=== PATIENT | male | born 1945 | race Caucasian/White ===

== ENCOUNTER 2020-10-31 15:07 | Emergency (ER) | payer MEDICARE, SELFPAY ==
[2020-10-31 15:20] VITALS: BP 127/63; PULSE 71; RESP 18; TEMP 37.4; O2SAT 99
--- NOTE | 2020-10-31 16:03 | ED.URI ---
HPI - URI/Sore Throat General Chief Complaint: Upper Respiratory Infection Stated Complaint: cough/congestion Time Seen by Provider: 10/31/20 15:46 Source: patient and RN notes reviewed Mode of arrival: ambulatory Limitations: no limitations History of Present Illness HPI Narrative: Patient presents today with a 3-day history of cough, congestion, and severe fatigue. Denies fever. He has been taking Delsym for his cough. He has had his vaccine for COVID-19. States his is also home ill. MD elicited complaint: cough and nasal congestion Related Data Home Medications Medication Instructions Recorded Confirmed clopidogrel 75 mg PO DAILY 10/31/20 10/31/20 empagliflozin-metformin [Synjardy] 1 tablet PO BID 10/31/20 10/31/20 ezetimibe 10 mg PO DAILY 10/31/20 10/31/20 isosorbide mononitrate 30 mg PO DAILY 10/31/20 10/31/20 liraglutide [Victoza 3-Jf] 1.8 mg SUBCUT DAILY 10/31/20 10/31/20 losartan 25 mg PO DAILY 10/31/20 10/31/20 metoprolol succinate 25 mg PO DAILY 10/31/20 10/31/20 omega 1-wwp-ijm-fish oil [Fish Oil] 1,200 cap PO DAILY 10/31/20 10/31/20 simvastatin 20 mg PO DAILY 10/31/20 10/31/20 Allergies Allergy/AdvReac Type Severity Reaction Status Date / Time codeine AdvReac Mild Fatigued Unverified 10/31/20 15:29 Review of Systems Review of Systems: CONSTITUTIONAL: Denies body aches, fever, chills, or sweats.+ Fatigue EYES: Denies visual changes, redness, or discharge. ENT: Denies rhinorrhea, sore throat, or otalgia.+ Congestion CARDIOVASCULAR: Denies chest pain, palpitations, or edema. RESPIRATORY: Denies dyspnea. + Cough GASTROINTESTINAL: Denies abdominal pain, nausea, vomiting, or diarrhea. GENITOURINARY: Denies dysuria or hematuria. SKIN: Denies rash, itching, or wounds. MUSCULOSKELETAL: Denies back pain, joint pain, or myalgia. NEUROLOGIC: Denies headache, numbness, tingling, or weakness. PSYCH: Denies depression or anxiety. [facility] Past Medical History Medical History (Updated 10/31/20 @ 16:09 by Tere Vogel, [employer] DISPLAYS ANALYST, ) Basal cell carcinoma Myocardial infarction Surgical History Surgical History (Updated 10/31/20 @ 16:06 by Tere Vogel, [facility], ) H/O transurethral resection of prostate Hx of CABG Social History Social History Gender identity (if verbalized by the patient): Male Comments At time of signature, I have reviewed and agree with nursing past medical, surgical, social and family history unless otherwise noted. Please see nursing chart for further information. There is no relevant family history pertinent to the presenting complaint Exam Narrative: GENERAL: Well-appearing, well-nourished, and in no acute distress. HEAD: Normocephalic, atraumatic. EYES: EOMI. No redness or drainage. Conjunctivae normal. ENT: Mucous membranes pink and moist. Nares clear. No rhinorrhea. TMs normal bilaterally. Throat normal. Uvula midline. NECK: Normal AROM. Supple. No lymphadenopathy. CHEST: No respiratory distress. Clear to auscultation. HEART: Regular rate and rhythm. No murmur appreciated. Normal peripheral pulses. EXTREMITIES: Normal range of motion. No edema. SKIN: Warm, dry, no rash. Capillary refill normal. Normal skin turgor. NEURO: No focal deficits. Alert and oriented x3. Gait steady. PSYCH: Normal affect. No signs of depression or anxiety. Course Vital Signs Vital signs: Vital Signs Temperature 99.4 F 10/31/20 15:20 Pulse Rate 71 10/31/20 15:20 Respiratory Rate 18 10/31/20 15:20 Blood Pressure 127/63 10/31/20 15:20 Pulse Oximetry 99 10/31/20 15:20 Temperature 99.4 F 10/31/20 15:20 Pulse Rate 71 10/31/20 15:20 Respiratory Rate 18 10/31/20 15:20 Blood Pressure 127/63 10/31/20 15:20 Pulse Oximetry 99 10/31/20 15:20 Reviewed. Pt has been instructed to follow up with his PCP regarding his elevated blood pressure today. MDM - URI/Sore Throat Differential Diagnosis D
== END 2020-10-31 16:12 | disposition home or self-care (01) ==
PROVIDERS: Emergency Provider Nurse Practitioner
DX: U07.1 COVID-19 (principal); I25.2 Old myocardial infarction; Z95.1 Presence of aortocoronary bypass graft; Z85.828 Personal history of other malignant neoplasm of skin
CPT/HCPCS: 87426; 99213; C9803; G0463